=== PATIENT | male | born 1965 | race African-American/Black ===

== ENCOUNTER 2022-10-12 20:39 | Emergency (ER) | payer OTHER ==
[~2022-10-12] VITALS: Ht 149.9 cm; Wt 51.8 kg
[2022-10-12 22:42] VITALS: BP 126/66; TEMP 98.1
== END 2022-10-12 22:42 | disposition home or self-care (01) ==
LOC: ED 20:39
DX: F10.129 Alcohol abuse with intoxication, unspecified (principal); Y90.6 Blood alcohol level of 120-199 mg/100 ml; S00.12XA Contusion of left eyelid and periocular area, initial encounter; S00.83XA Contusion of other part of head, initial encounter; S00.03XA Contusion of scalp, initial encounter; Y04.2XXA Assault by strike against or bumped into by another person, initial encounter; Y93.01 Activity, walking, marching and hiking; Y92.410 Unspecified street and highway as the place of occurrence of the external cause
CPT/HCPCS: 36415; 80307; 80320; 81002; 99283